=== PATIENT | female | born 1945 | race Caucasian/White ===

== ENCOUNTER 2023-12-16 14:35 | Emergency (ER) | payer OTHER ==
[~2023-12-16] VITALS: Ht 152.4 cm; Wt 65.8 kg
[2023-12-16 14:40] VITALS: TEMP 99.1
[2023-12-16] MEDS: KETOROLAC TROMETHAMINE INJ 60 MG/2 ML VIAL IM ONE (15:25)
[2023-12-16] MEDS: BACLOFEN (10 MG) 10 MG TABLET PO ONE (15:25)
[2023-12-16] MEDS ORDERED: KETOROLAC TROMETHAMINE INJ 30 MG/ML VIAL ONE (15:26)
[2023-12-16] MEDS ORDERED: BACLOFEN (10 MG) 10 MG TABLET ONE (15:27)
--- NOTE | 2023-12-16 16:43 | NUR ---
PAIN CONTROL EFFECTIVE AWAITING FOR RE-EVAL BY ER MD RESTING COMFORTABLY IN BED NO DISTRESS NOTED
--- NOTE | 2023-12-16 18:11 | NUR ---
No CT evidence of acute lumbar spine fracture or subluxation. Cont pain management for Chronic Back Pain Plan to discharge home once re-eval per Dr Neal
[2023-12-16] MEDS ORDERED: BACL10TA PO (18:23)
[2023-12-16] MEDS ORDERED: KETO10TA2 PO (18:23)
[2023-12-16 18:29] VITALS: BP 134/72; O2SAT 98
--- NOTE | 2023-12-16 18:30 | NUR ---
Patient discharged to home in stable condition. Written and verbal after care instructions given. Patient verbalizes understanding of instruction.
== END 2023-12-16 18:30 | disposition home or self-care (01) ==
LOC: ER 14:52
DX: M54.41 Lumbago with sciatica, right side (principal)
CPT/HCPCS: 99285; 72131; 96372; J1885

== ENCOUNTER 2025-01-30 11:20 | Emergency (ER) | payer MEDICARE, OTHER ==
[~2025-01-30] VITALS: Ht 160 cm; Wt 68.0 kg
[~2025-01-30 11:20] MED LIST: BACL10TA PO; KETO10TA2 PO
[2025-01-30] MEDS ORDERED: LIDOCAINE 1%-EPI 1:100,000 20 ML VIAL ONE (13:23)
[2025-01-30] MEDS ORDERED: BACI500P4 TP (13:59)
[2025-01-30] MEDS ORDERED: TDAP [DIPH/PERTUSSIS/TET] 0.5 ML VIAL IM ONE ×2 (14:00→14:11)
[2025-01-30] MEDS ORDERED: BACITRACIN ZINC OINT PACKET 1 EA PACKET TP ONE (14:10)
[2025-01-30] MEDS: BACITRACIN ZINC OINT PACKET 1 EA PACKET TP ONE (14:15)
[2025-01-30 14:55] VITALS: BP 135/70; TEMP 98.5; O2SAT 100
== END 2025-01-30 14:55 | disposition home or self-care (01) ==
LOC: ER 11:31
DX: S01.81XA Laceration without foreign body of other part of head, initial encounter (principal); I11.0 Hypertensive heart disease with heart failure; I50.9 Heart failure, unspecified; Z79.899 Other long term (current) drug therapy; W01.0XXA Fall on same level from slipping, tripping and stumbling without subsequent striking against object, initial encounter; Y93.89 Activity, other specified; Y92.009 Unspecified place in unspecified non-institutional (private) residence as the place of occurrence of the external cause; Y99.9 Unspecified external cause status
CPT/HCPCS: 12013; 70450; 70486; 72125; 90471; 90715; 99285; A6403; J3490